=== PATIENT | male | born 1960 | race Caucasian/White ===

== ENCOUNTER 2024-12-17 21:35 | Inpatient (IN) | payer MEDICARE, OTHER ==
[~2024-12-17] VITALS: Ht 175.3 cm; Wt 100.7 kg
[2024-12-17] MEDS: ALBUTEROL SULFATE 2.5 MG/3 ML NEBU NEB ONE (22:45)
[2024-12-17 23:18] LABS: *BILIRUBIN,URIN NEGATIVE (NEGATIVE); *BLOOD, URINE 3+ (NEGATIVE); *CLARITY,URINE CLEAR (CLEAR); *COLOR,URINE YELLOW (YELLOW); *KETONES,URINE TRACE (NEGATIVE); *PROTEIN,URINE NEGATIVE (NEGATIVE); LEUKOCYTE ESTERASE ,URINE NEGATIVE (NEGATIVE); NITRITE, URINE NEGATIVE (NEGATIVE); PH,URINE 6.5 (5.0-8.0)
[2024-12-17 23:26] LABS: *AMPHETAMINE, URINE POSITIVE (NEGATIVE); *BARBITURATE, URINE NEGATIVE (NEGATIVE); *BENZODIAZEPINE, URINE NEGATIVE (NEGATIVE); *CANNABINOID, URINE POSITIVE (NEGATIVE); *COCCAINE, URINE NEGATIVE (NEGATIVE); *OPIATE, URINE NEGATIVE (NEGATIVE); *PHENCYCLIDINE SCREEN,URINE NEGATIVE (NEGATIVE); FENTANYL, URINE NEGATIVE (NEGATIVE); UGLUCOSE 2+ (NEGATIVE)
[2024-12-17 23:42] LABS: BACTERIA,URINE FEW /HPF (NONE SEEN); RBC,URINE 50-80 /HPF (0-3); SQUAMOUS EPITHELIAL CELL,UR MODERATE /HPF (NONE SEEN)
[2024-12-17 23:43] LABS: WBC,URINE 0-3 /HPF (0-3)
[2024-12-18 00:20] LABS: BASOPHILS % (AUTO) 0.5 % (0.0-2.0); EOSINOPHILS # (AUTO) 0.1 K/uL (0.0-0.7); EOSINOPHILS % (AUTO) 3.6 % (0.0-7.0); HEMATOCRIT 26.4 % (36.7-47.1); HEMOGLOBIN 8.9 g/dL (12.5-16.3); LYMPHOCYTES # (AUTO) 0.7 K/uL (0.8-4.8); LYMPHOCYTES % (AUTO) 20.3 % (20.5-51.5); MEAN CORPUSCULAR HEMOGLOBIN 30.9 uug (23.8-33.4); MEAN CORPUSCULAR HGB CONC 34 g/dL (32.5-36.3); MEAN CORPUSCULAR VOLUME 91.9 fL (73.0-96.2); MONOCYTES # (AUTO) 0.4 K/uL (0.1-1.30); MONOCYTES % (AUTO) 12.1 % (0.0-11.0); NEUTROPHILS # (AUTO) 2.2 K/uL (1.8-8.9); NEUTROPHILS % (AUTO) 63.5 % (38.5-71.5); RED BLOOD CELL COUNT(AUTO) 2.87 MIL/uL (4.06-5.63); RED CELL DISTRIBUTION WIDTH 17.4 % (12.1-16.2); WHITE BLOOD COUNT (AUTO) 3.5 K/uL (3.6-10.2)
[2024-12-18 00:30] LABS: CALCIUM 9.3 mg/dL (8.5-10.1); CARBON DIOXIDE 27 mmol/L (21-32); CHLORIDE 108 mmol/L (98-107); CREATININE 1.1 mg/dL (0.6-1.3); GLUCOSE 128 mg/dL (74-106); POTASSIUM 4.2 mmol/L (3.5-5.1); SODIUM SERUM 144 mmol/L (136-145); UREA NITROGEN, BLOOD 29 mg/dL (7-18)
[2024-12-18 00:33] LABS: DIFFERENTIAL COMMENT 1; PLATELET COUNT (AUTO) 37 K/uL (152-348)
[2024-12-18 00:35] LABS: ALANINE AMINOTRANSFERASE 12 U/L (16-63); ALBUMIN 3.2 g/dL (3.4-5.0); ALKALINE PHOSPHATASE 87 U/L (50-136); ASPARTATE AMINOTRANSFERASE 19 U/L (15-37); BILIRUBIN,DIRECT 0.3 mg/dL (0.0-0.2); BILIRUBIN,TOTAL 0.8 mg/dL (0.2-1.0); TOTAL PROTEIN, SERUM 7.1 g/dL (6.4-8.2)
[2024-12-18 00:39] LABS: ACETAMINOPHEN < 10.0 ug/mL (10-30)
[2024-12-18 00:56] LABS: ETHANOL < 3 MG/DL (0-10)
[2024-12-18] MEDS ORDERED: EMPA25TA PO (01:02)
[2024-12-18] MEDS ORDERED: ISOS30TA9 PO (01:02)
[2024-12-18] MEDS ORDERED: METH-817 PO (01:02)
[2024-12-18] MEDS ORDERED: FERR-68 PO (01:02)
[2024-12-18] MEDS ORDERED: FURO-152 PO (01:02)
[2024-12-18] MEDS ORDERED: ACET325T53 PO (01:02)
[2024-12-18] MEDS ORDERED: ASCO500T85 PO (01:02)
[2024-12-18] MEDS ORDERED: POTA-88 PO (01:02)
[2024-12-18] MEDS ORDERED: SEMA0.25 SQ (01:02)
[2024-12-18] MEDS ORDERED: ESCI-9 PO (01:02)
[2024-12-18] MEDS ORDERED: INSU100V39 SQ (01:02)
[2024-12-18] MEDS ORDERED: ATOR20TA PO (01:02)
[2024-12-18] MEDS ORDERED: METF-442 PO (01:02)
[2024-12-18] MEDS ORDERED: NALO4SPR NS (01:02)
[2024-12-18] MEDS ORDERED: HYDR-894 PO (01:02)
[2024-12-18] MEDS ORDERED: FAMO-132 PO (01:02)
[2024-12-18] MEDS ORDERED: MAGN400O6 PO (01:02)
[2024-12-18 02:21] LABS: LYMPHOCYTES % (MANUAL) 12 % (20-40); MONOCYTES % (MANUAL) 8 % (2-10); NEUTROPHILS % (MANUAL) 80 % (42-75)
[2024-12-18 02:22] LABS: ANISOCYTOSIS 1+; PLATELET ESTIMATE MARKED DECREASED
[2024-12-18] MEDS ORDERED: TEMAZEPAM 7.5 MG CAPSULE PO PRN ×2 (03:30)
[2024-12-18] MEDS ORDERED: MAGNESIUM HYDROXIDE 30 ML LIQUID UDC PO PRN ×2 (03:30→10:15)
[2024-12-18] MEDS ORDERED: MAG HYDROX/AL HYDROX/SIMETH 30 ML LIQUID UDC PO PRN (03:30)
[2024-12-18] MEDS: BLOOD SUGAR DIAGNOSTIC 1 EACH STRIP VI ONE (03:38)
[2024-12-18] MEDS: LORAZEPAM 1 MG TABLET PO PRN (04:12)
[2024-12-18 08:10] VITALS: BP 129/69; TEMP 98.2; O2SAT 98
[2024-12-18] MEDS ORDERED: ISOS20TA8 PO (08:54)
[2024-12-18] MEDS ORDERED: ACETAMINOPHEN 325 MG TABLET-SA PATIENTS-PAIN ONLY PO PRN (10:15)
[2024-12-18] MEDS ORDERED: NALOXONE NASAL SPRAY 4 MG SPRAY NS PRN (10:15)
[2024-12-18] MEDS: NICOTINE 14 MG/24HR PATCH TD SCH (12:30)
[2024-12-18] MEDS: ISOSORBIDE DINITRATE 20 MG TABLET PO SCH (13:00)
[2024-12-18] MEDS: hydrALAZINE HCL 25 MG TABLET PO SCH (14:00)
[2024-12-18] MEDS: METHADONE ORAL CONCENTRATE SOL 10 MG/ML ORAL.CONC PO SCH (15:18)
[2024-12-18 15:55] VITALS: BP 92/51; TEMP 98.2; O2SAT 98
[2024-12-18] MEDS: FERROUS SULFATE 325 MG TABEC PO SCH (17:00)
[2024-12-18] MEDS: METFORMIN HCL 500 MG TABLET PO SCH (17:45)
[2024-12-18] MEDS ORDERED: DEXTROSE 50% 50 ML DISP.SYRIN IV PRN (19:30)
[2024-12-18] MEDS: BLOOD SUGAR DIAGNOSTIC 1 EACH STRIP VI SCH (20:50)
[2024-12-18] MEDS: INSULIN REGULAR, HUMAN 300 UNITS/3 ML VIAL SQ PRN (20:50)
[2024-12-18] MEDS: ATORVASTATIN 20 MG TABLET PO SCH (20:50)
[2024-12-19] MEDS ORDERED: Medication Not On Formulary EA (Empagliflozin (Jardiance) 25 MG) PO SCH (09:00)
[2024-12-19] MEDS ORDERED: METHADONE HCL 10 MG TABLET PO SCH (09:00)
[2024-12-19] MEDS: FAMOTIDINE 20 MG TABLET PO SCH (10:08)
[2024-12-19] MEDS: FUROSEMIDE 20 MG TABLET PO SCH (10:08)
[2024-12-19] MEDS: ASCORBIC ACID 500 MG TABLET PO SCH (10:09)
[2024-12-19] MEDS: EMPAGLIFLOZIN 25 MG TABLET PO SCH (10:12)
[2024-12-19 10:15] VITALS: BP 132/52; TEMP 98; O2SAT 98
[2024-12-19] MEDS: ESCITALOPRAM OXALATE 10 MG TABLET PO SCH (15:10)
[2024-12-19 15:28] VITALS: BP 141/62; TEMP 98; O2SAT 98
[2024-12-19] MEDS: RIFAXIMIN 550 MG TABLET PO SCH (20:46)
[2024-12-19] MEDS: QUETIAPINE FUMARATE 25 MG TABLET PO SCH (20:47)
[2024-12-19] MEDS: LACTULOSE 20 G/30 ML LIQUID UDC PO SCH (20:49)
[2024-12-20 08:24] VITALS: BP 124/73; TEMP 98.5; O2SAT 98
[2024-12-20] MEDS: SPIRONOLACTONE 50 MG TABLET PO SCH (09:54)
[2024-12-20] MEDS: INSULIN REGULAR, HUMAN 1000 UNIT/10 ML VIAL SQ PRN (12:19)
[2024-12-20 16:54] VITALS: BP 122/66; TEMP 98; O2SAT 98
[2024-12-20 20:00] VITALS: BP 130/64; TEMP 98; O2SAT 17
[2024-12-21 08:22] VITALS: BP 122/74; TEMP 98.1; O2SAT 98
[2024-12-21] MEDS: risperiDONE 0.5 MG TABLET PO SCH (09:05)
[2024-12-21 16:55] VITALS: BP 122/61; TEMP 98; O2SAT 17
[2024-12-21 20:15] VITALS: BP 128/64; TEMP 98.2; O2SAT 98
[2024-12-22 08:18] VITALS: BP 126/54; TEMP 98.5; O2SAT 98
[2024-12-23 08:03] VITALS: BP 121/47; TEMP 98.2; O2SAT 98
[2024-12-23] MEDS: LORAZEPAM 1 MG TABLET PO PRN (14:58)
[2024-12-23 15:10] VITALS: BP 128/53; TEMP 98.2; O2SAT 98
[2024-12-23 20:00] VITALS: BP 130/61; TEMP 98.1; O2SAT 95
[2024-12-23] MEDS: TEMAZEPAM 15 MG CAPSULE PO PRN (23:56)
[2024-12-23] MEDS: ACETAMINOPHEN 325 MG TABLET PO PRN (23:57)
[2024-12-24 08:20] VITALS: BP 126/61; TEMP 98; O2SAT 98
[2024-12-24 09:57] VITALS: BP 126/61
[2024-12-24] MEDS ORDERED: FURO-152 PO (13:38)
[2024-12-24] MEDS ORDERED: FERR-68 PO (13:38)
[2024-12-24] MEDS ORDERED: ATOR20TA PO (13:38)
[2024-12-24] MEDS ORDERED: EMPA25TA PO (13:38)
[2024-12-24] MEDS ORDERED: SEMA0.25 SQ (13:38)
[2024-12-24] MEDS ORDERED: ISOS20TA8 PO (13:38)
[2024-12-24] MEDS ORDERED: METF-442 PO (13:38)
[2024-12-24] MEDS ORDERED: HYDR-894 PO (13:38)
[2024-12-24] MEDS ORDERED: RISP0.5T5 PO (13:39)
[2024-12-24] MEDS ORDERED: RIFA550T PO (13:39)
[2024-12-24] MEDS ORDERED: SPIR50TA PO (13:39)
[2024-12-24] MEDS ORDERED: ESCI-9 PO (13:39)
[2024-12-24] MEDS ORDERED: LACT10SO7 PO (13:39)
== END 2024-12-24 12:00 | DRG 885 ==
LOC: ER 21:35 → GPS 12-18 01:40
PROVIDERS: ADMIT Psychiatry & Neurology Psychiatry; ATTEND Nurse Practitioner Acute Care
DX: F32.3 Major depressive disorder, single episode, severe with psychotic features (principal); E11.65 Type 2 diabetes mellitus with hyperglycemia; I11.0 Hypertensive heart disease with heart failure; D61.818 Other pancytopenia; I85.00 Esophageal varices without bleeding; F11.20 Opioid dependence, uncomplicated; Z91.148 Patient's other noncompliance with medication regimen for other reason; E66.9 Obesity, unspecified; Z68.32 Body mass index [BMI] 32.0-32.9, adult; E78.5 Hyperlipidemia, unspecified; R26.81 Unsteadiness on feet; Z79.891 Long term (current) use of opiate analgesic; K74.60 Unspecified cirrhosis of liver; Z86.19 Personal history of other infectious and parasitic diseases; Z79.84 Long term (current) use of oral hypoglycemic drugs; K21.9 Gastro-esophageal reflux disease without esophagitis; Z79.899 Other long term (current) drug therapy; H91.93 Unspecified hearing loss, bilateral; F17.210 Nicotine dependence, cigarettes, uncomplicated; Z79.4 Long term (current) use of insulin; J44.9 Chronic obstructive pulmonary disease, unspecified; G89.4 Chronic pain syndrome; I50.9 Heart failure, unspecified; Z71.6 Tobacco abuse counseling; R79.89 Other specified abnormal findings of blood chemistry
CPT/HCPCS: 36415; 85025; 93005; A4663; G0480; J1815

== ENCOUNTER 2025-01-12 17:45 | Inpatient (IN) | payer MEDICARE, OTHER ==
[~2025-01-12] VITALS: Ht 175.3 cm; Wt 102.7 kg
[~2025-01-12 17:45] MED LIST: ACET325T53 PO; ASCO500T85 PO; ATOR20TA PO; EMPA25TA PO; ESCI-9 PO; FAMO-132 PO; FERR-68 PO; FURO-152 PO; HYDR-894 PO; INSU100V39 SQ; ISOS20TA8 PO; LACT10SO7 PO; MAGN400O6 PO; METF-442 PO; METH-817 PO; NALO4SPR NS; POTA-88 PO; RIFA550T PO; RISP0.5T5 PO; SEMA0.25 SQ; SPIR50TA PO
[2025-01-12 18:18] LABS: *BILIRUBIN,URIN NEGATIVE (NEGATIVE); *BLOOD, URINE 2+ (NEGATIVE); *CLARITY,URINE CLEAR (CLEAR); *COLOR,URINE YELLOW (YELLOW); *KETONES,URINE NEGATIVE (NEGATIVE); *PROTEIN,URINE NEGATIVE (NEGATIVE); *UROBILINOGEN,URINE 0.2 E.U./dl (NORMAL); LEUKOCYTE ESTERASE ,URINE NEGATIVE (NEGATIVE); NITRITE, URINE NEGATIVE (NEGATIVE); RED BLOOD CELL COUNT(AUTO) 2.75 MIL/uL (4.06-5.63); RED CELL DISTRIBUTION WIDTH 17.4 % (12.1-16.2); WHITE BLOOD COUNT (AUTO) 3.1 K/uL (3.6-10.2)
[2025-01-12 18:21] LABS: PLATELET COUNT (AUTO) 36 K/uL (152-348)
[2025-01-12 18:22] LABS: UGLUCOSE 2+ (NEGATIVE)
[2025-01-12 18:24] LABS: CREATININE 1.2 mg/dL (0.6-1.3); SODIUM SERUM 136 mmol/L (136-145); UREA NITROGEN, BLOOD 29 mg/dL (7-18)
[2025-01-12 18:26] LABS: *AMPHETAMINE, URINE NEGATIVE (NEGATIVE); *BARBITURATE, URINE NEGATIVE (NEGATIVE); *BENZODIAZEPINE, URINE NEGATIVE (NEGATIVE); *CANNABINOID, URINE POSITIVE (NEGATIVE); *COCCAINE, URINE NEGATIVE (NEGATIVE); *OPIATE, URINE NEGATIVE (NEGATIVE); *PHENCYCLIDINE SCREEN,URINE NEGATIVE (NEGATIVE); FENTANYL, URINE NEGATIVE (NEGATIVE)
[2025-01-12 18:29] LABS: ASPARTATE AMINOTRANSFERASE 12 U/L (15-37); TOTAL PROTEIN, SERUM 6.8 g/dL (6.4-8.2)
[2025-01-12 18:30] LABS: ETHANOL < 3 MG/DL (0-10)
[2025-01-12] MEDS ORDERED: OLANZAPINE 10 MG VIAL IM ONE (21:54)
[2025-01-12] MEDS ORDERED: INSULIN REGULAR, HUMAN 1000 UNIT/10 ML VIAL ONE (21:57)
[2025-01-12] MEDS: INSULIN REGULAR, HUMAN 1000 UNIT/10 ML VIAL SQ ONE (22:15)
[2025-01-12] MEDS: OLANZAPINE 10 MG VIAL IM ONE (22:17)
[2025-01-13] VITALS: BP 127/58; TEMP 97.5; O2SAT 93
[2025-01-13] MEDS ORDERED: ONDANSETRON 4 MG/2 ML VIAL IV PRN (00:30)
[2025-01-13] MEDS: MORPHINE SULFATE 2 MG/1 ML DISP.SYRIN IV PRN (00:39)
[2025-01-13] MEDS: LACTULOSE 20 G/30 ML LIQUID UDC PO SCH (00:39)
[2025-01-13] MEDS: PANTOPRAZOLE SODIUM 40 MG TABLET.DR PO SCH (06:43)
[2025-01-13] MEDS: OLANZAPINE 10 MG VIAL IM PRN (07:04)
[2025-01-13] MEDS ORDERED: LORAZEPAM 2 MG/1 ML VIAL IV PRN ×2 (09:45)
[2025-01-13] MEDS ORDERED: LORAZEPAM 1 MG TABLET PO PRN (09:45)
[2025-01-13] MEDS: LORAZEPAM 2 MG/1 ML VIAL IM ONE ×2 (09:47→14:16)
[2025-01-13] MEDS ORDERED: DEXTROSE 50% 50 ML DISP.SYRIN IV PRN (10:15)
[2025-01-13] MEDS ORDERED: INSULIN REGULAR, HUMAN 300 UNITS/3 ML VIAL SQ PRN (10:15)
[2025-01-13] MEDS ORDERED: NALOXONE NASAL SPRAY 4 MG SPRAY NS PRN (10:30)
[2025-01-13] MEDS ORDERED: METHADONE HCL 10 MG TABLET PO SCH (10:30)
[2025-01-13] MEDS: NICOTINE 21 MG/24HR PATCH TD SCH (11:09)
[2025-01-13] MEDS ORDERED: ESCI-9 PO (11:21)
[2025-01-13] MEDS: BLOOD SUGAR DIAGNOSTIC 1 EACH STRIP VI SCH (11:42)
[2025-01-13] MEDS: FUROSEMIDE 20 MG TABLET PO SCH (12:00)
[2025-01-13] MEDS: INSULIN REGULAR, HUMAN 1000 UNIT/10 ML VIAL SQ PRN (12:02)
[2025-01-13] MEDS: ISOSORBIDE DINITRATE 20 MG TABLET PO SCH (12:07)
[2025-01-13] MEDS: METHADONE ORAL CONCENTRATE SOL 10 MG/ML ORAL.CONC PO SCH (13:39)
[2025-01-13] MEDS: diphenhydrAMINE 50 MG/1 ML VIAL IM ONE (14:16)
[2025-01-13] MEDS: HALOPERIDOL LACTATE 5 MG/1 ML VIAL IM ONE (14:16)
[2025-01-13] MEDS: FERROUS SULFATE 325 MG TABEC PO SCH (17:59)
[2025-01-13] MEDS: METFORMIN HCL 500 MG TABLET PO SCH (18:00)
[2025-01-13] MEDS: RIFAXIMIN 550 MG TABLET PO SCH (21:00)
[2025-01-13] MEDS: LORAZEPAM 2 MG/1 ML VIAL IM PRN (23:12)
[2025-01-14] VITALS (9 sets, daily range): BP systolic 125; BP diastolic 58; TEMP 99.2; O2SAT 94–99
[2025-01-14] MEDS ORDERED: MORPHINE SULFATE 2 MG/1 ML DISP.SYRIN IV PRN (07:15)
[2025-01-14] MEDS: POTASSIUM CHLORIDE 20 MEQ TAB.PRT.SR PO SCH (08:54)
[2025-01-14] MEDS: SPIRONOLACTONE 50 MG TABLET PO SCH (08:54)
[2025-01-14] MEDS: ESCITALOPRAM OXALATE 10 MG TABLET PO SCH (08:54)
[2025-01-14] MEDS: EMPAGLIFLOZIN 25 MG TABLET PO SCH (08:57)
[2025-01-14] MEDS: IPRATROPIUM BROMIDE 0.5 MG/2.5 ML NEBU NEB SCH (09:28)
[2025-01-14] MEDS: ALBUTEROL SULFATE 2.5 MG/3 ML NEBU NEB SCH (09:28)
[2025-01-14 15:56] LABS: WHITE BLOOD COUNT (AUTO) 3.1 K/uL (3.6-10.2)
[2025-01-14 15:58] LABS: RED BLOOD CELL COUNT(AUTO) 2.72 MIL/uL (4.06-5.63); RED CELL DISTRIBUTION WIDTH 18.0 % (12.1-16.2)
[2025-01-14 16:09] LABS: PLATELET COUNT (AUTO) 36 K/uL (152-348)
[2025-01-14 16:10] LABS: ASPARTATE AMINOTRANSFERASE 15.0 U/L (15-37); CREATININE 1.3 mg/dL (0.6-1.3); SODIUM SERUM 137.0 mmol/L (136-145); TOTAL PROTEIN, SERUM 6.8 g/dL (6.4-8.2); UREA NITROGEN, BLOOD 24.0 mg/dL (7-18)
[2025-01-14 16:57] LABS: BAND % (MANUAL) 1 % (0-10); EOSINOPHILS % (MANUAL) 2 % (0-8); LYMPHOCYTES % (MANUAL) 16 % (20-40); MONOCYTES % (MANUAL) 9 % (2-10); NEUTROPHILS % (MANUAL) 72 % (42-75); PLATELET ESTIMATE MARKED DECREASED
[2025-01-14] MEDS: INSULIN GLARGINE,HUM 300 UNITS/3 ML CARTRIDGE SQ SCH (21:48)
[2025-01-15] VITALS (9 sets, daily range): BP systolic 118–131; BP diastolic 49–55; TEMP 97.8–98.3; O2SAT 94–99
[2025-01-15 07:58] LABS: RED BLOOD CELL COUNT(AUTO) 2.50 MIL/uL (4.06-5.63); RED CELL DISTRIBUTION WIDTH 17.7 % (12.1-16.2); WHITE BLOOD COUNT (AUTO) 3.1 K/uL (3.6-10.2)
[2025-01-15 08:02] LABS: ASPARTATE AMINOTRANSFERASE 24.0 U/L (15-37); CREATININE 1.1 mg/dL (0.6-1.3); SODIUM SERUM 141.0 mmol/L (136-145); TOTAL PROTEIN, SERUM 6.7 g/dL (6.4-8.2); UREA NITROGEN, BLOOD 26.0 mg/dL (7-18)
[2025-01-15 08:25] LABS: PLATELET COUNT (AUTO) 34 K/uL (152-348)
[2025-01-15 13:55] LABS: NEUTROPHILS % (MANUAL) 65 % (42-75)
[2025-01-15 13:56] LABS: EOSINOPHILS % (MANUAL) 2 % (0-8); LYMPHOCYTES % (MANUAL) 20 % (20-40); MONOCYTES % (MANUAL) 13 % (2-10); PLATELET ESTIMATE DECREASED
== END 2025-01-15 18:44 | DRG 442 ==
LOC: ER 19:18 → MEDSURG3 23:05
PROVIDERS: ADMIT Nurse Practitioner Family; ATTEND Nurse Practitioner Family
DX: K76.82 Hepatic encephalopathy (principal); D61.818 Other pancytopenia; E44.0 Moderate protein-calorie malnutrition; F11.23 Opioid dependence with withdrawal; R45.1 Restlessness and agitation; E11.9 Type 2 diabetes mellitus without complications; T40.2X5A Adverse effect of other opioids, initial encounter; Y92.129 Unspecified place in nursing home as the place of occurrence of the external cause; E78.5 Hyperlipidemia, unspecified; K21.9 Gastro-esophageal reflux disease without esophagitis; K74.60 Unspecified cirrhosis of liver; E11.65 Type 2 diabetes mellitus with hyperglycemia; E11.42 Type 2 diabetes mellitus with diabetic polyneuropathy; F43.10 Post-traumatic stress disorder, unspecified; F12.10 Cannabis abuse, uncomplicated; F17.210 Nicotine dependence, cigarettes, uncomplicated; J44.9 Chronic obstructive pulmonary disease, unspecified; E88.09 Other disorders of plasma-protein metabolism, not elsewhere classified; R09.89 Other specified symptoms and signs involving the circulatory and respiratory systems; R26.2 Difficulty in walking, not elsewhere classified; R13.10 Dysphagia, unspecified; M62.81 Muscle weakness (generalized); B19.20 Unspecified viral hepatitis C without hepatic coma; D64.9 Anemia, unspecified; G47.00 Insomnia, unspecified; H91.93 Unspecified hearing loss, bilateral; F29 Unspecified psychosis not due to a substance or known physiological condition; F32.A Depression, unspecified; I49.3 Ventricular premature depolarization; Z78.1 Physical restraint status; I10 Essential (primary) hypertension; Z79.4 Long term (current) use of insulin; Z79.84 Long term (current) use of oral hypoglycemic drugs; Z91.148 Patient's other noncompliance with medication regimen for other reason; Z79.899 Other long term (current) drug therapy
CPT/HCPCS: 36415; 70030-TC; 70450; 71045; 83735; 84443; 85025; 94640; 94664; 94760; A4663; G0378; G0480; J1200; J1630; J1815; J2060; J2270; J2358; J3590